=== PATIENT | male | born 1970 | race Caucasian/White ===

== ENCOUNTER 2025-09-19 16:17 | Emergency (ER) | payer OTHER, SELFPAY ==
[2025-09-19] VITALS (12 sets, daily range): BP systolic 127–142; BP diastolic 69–82; PULSE 58–74; O2SAT 95–99; BMI 29.9
--- NOTE | 2025-09-19 16:31 | ECG_ITS ---
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 Measurements Intervals [place] Rate: 67 P: 65 [place]: 176 QRS: 19 QRSD: 98 T: 33 QT: 430 QTc: 446 Interpretive Statements 1100 Sinus rhythm 4068 Nonspecific Twave abnormality 9130 borderline ECG No previous ECG available for comparison Electronically Signed On 09-19-2025 19:21:00 EDT by PRAKASH ROTHMAN M.D.
--- NOTE | 2025-09-19 16:31 | XR_ITS ---
The [address] [address] Patient Name: YANET HERNANDEZ MRN: [id number] date: 1970 Sex: M Assigned Patient Location: ED.MAIN Current Patient Location: ED.MAIN Accession/Order Number: [id number] Exam Date: 09/19/2025 17:00 Report Date: 09/19/2025 17:22 At the request of: ELIZABETH WARNER Procedure: XR chest 1V PA CHEST: CLINICAL HISTORY: Weakness COMPARISON: None Mildly prominent cardiomediastinal silhouette. Lungs are clear. No effusion or pneumothorax. XR/XR chest 1V IMPRESSION: Negative acute pleural-parenchymal disease. Impression dictated by: Italo Martini M.D. 09/19/2025 5:22 PM Dictation Location: [place] [address] Electronically authenticated by: [id number] Y Date: 09/19/2025 17:22
--- NOTE | 2025-09-19 16:32 | CT_ITS ---
The [address] [address] Patient Name: YANET HERNANDEZ MRN: [id number] date: 1970 Sex: M Assigned Patient Location: ED.MAIN Current Patient Location: ED.MAIN Accession/Order Number: [id number] Exam Date: 09/19/2025 17:00 Report Date: 09/19/2025 17:24 At the request of: ELIZABETH WARNER Procedure: CT head/brain wo con CT BRAIN WITHOUT CONTRAST: CLINICAL HISTORY: Dizziness, weakness COMPARISON: None TECHNIQUE: Contiguous axial unenhanced images were obtained through the brain. This CT exam was performed using one or more following dose reduction techniques: Automated exposure control, adjustment of the mA and/or kV according to patient size, or use of iterative reconstruction technique. FINDINGS: There is no evidence of midline shift, intra or extra-axial fluid collection, hemorrhage or CT evidence of acute large vascular distribution stroke. Intracranial vascular calcifications. Visualized intraorbital contents appear unremarkable. Visualized paranasal sinuses are clear. The surrounding soft tissues are normal. CT/CT head/brain wo con IMPRESSION: NO ACUTE INTRACRANIAL ABNORMALITY. Impression dictated by: Italo Martini M.D. 09/19/2025 5:24 PM Dictation Location: [place] [address] Electronically authenticated by: [id number] Y Date: 09/19/2025 17:24
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
[2025-09-19 16:36] LABS: Hematocrit 41.9 % (42.0-54.0); Hemoglobin 13.5 g/dL (14.0-18.0); Immature Granulocytes Abs Auto 0.00 10^3/uL (0.00-0.03); Immature Granulocytes Pct Auto 0.0 % (0.0-0.5); Lymphocytes Absolute Auto 1.5 10^3/uL (1.2-3.8); Mean Corpuscular HGB Conc 32.2 g/dL (29.9-35.2); Mean Corpuscular Hemoglobin 29.4 pg (25.9-34.0); Mean Corpuscular Volume 91.3 fL (80.0-94.0); Platelet Count 227 10^3/uL (150-450); Red Blood Count 4.59 10^6/uL (4.70-6.10); White Blood Count 5.7 10^3/uL (4.0-11.0)
--- OUTSIDE RECORDS SUMMARY | 2025-09-19 16:41 | XMS_ITS | Clinical Summary ---
Author Organization [facility] Address [address] [place] [address] Care Team Providers Care Computer Systems Support Specialist Name Role Phone Unavailable Primary Care Provider Unavailabl e Allergies Active AllergyReactionsCriticalityNoted DateCommentsShellfishAnaphylaxis 11/12/2011 Throat started to swell rushed to hospital Medications MedicationSigDispense QuantityRefillsLast FilledStart DateEnd DateStatus Fluoxetine HCl (PROZAC) 40 mg ORAL capsule Take 1 capsule by mouth once daily.ctive traZODONE 100 mg ORAL tablet Take 1 tablet by mouth at bedtime as needed.ctive ergocalciferol, vitamin D2, (VITAMIN D) 50,000 unit ORAL capsule Take 1 capsule by mouth once each week. 4 capsule ctive Family History Medical HistoryRelationCommentsStrokeFatherDiabetesMotherKidney DiseaseMother Rheumatoid arthritis [Other]MotherMultiple SclerosisOtherPaternal cousinRelation StatusCommentsFatherMotherOther Social History Tobacco UseTypesPacks/DayYears UsedDateSmoking Tobacco: Every DayCigarettes Comments:smokes about 1/2 pa ck daily Alcohol UseStandard Drinks/WeekCommentsYes0 (1 standard drink = 0.6 oz pure alcohol)Sex and Gender InformationValueDate RecordedSex Assigned at BirthNot on fileLegal KstApng64/02/2012 10:10 AM ESTGender IdentityNot on fileSexual OrientationNot on fileOccupationIndustryJob Start DateJob End DateNot on fileNot on fileNot on fileNot on file Last Filed Vital Signs Vital SignReadingTime TakenCommentsBlood Pmkwrfyr897/9212 8:49 AM EST Djhat793111/12/2011 8:49 AM ESTTemperature--Respiratory Rate--Oxygen Saturation-- Inhaled Oxygen Concentration--Wdzkuy37.3 kg (210 lb 0.6 oz)11/12/2011 8:49 AM ESTHeight--Body Mass Index-- Plan of Treatment Health MaintenanceDue DateLast DoneCommentsAnxiety Ufgijjnks71/17/1989Depression Stlhfhecu00/17/1989HIV Ymfwynvfi44/17/1989Hepatitis C Uuhkxmrnh73/17/1989 DTaP,Tdap,Td Vaccine (1 - Tdap)1990Hepatitis B Vaccine (1 of 3 - 19+ 3- dose series)1990Lipid Ytwszsyrw87/17/2006CT Vkviksyyafzr65/17/2016 Cologuard (FIT-DNA)06/13/20161464Novsyvslbcm24/17/2016Colorectal Cancer Screening 2016Diabetes Wghxkygua72, 11/12/2011Fecal Occult Blood 06/13/20161549Vdeklxuqllkho00/17/2016Pneumococcal Vaccine: 50+ (1 of 1 - PCV) 2021hingrix Vaccine (1 of 2)2021ovid-19 Vaccine (1 - 2024- season)2025Influenza Vaccine (#1)2025 Procedures Procedure NamePriorityDate/TimeAssociated DiagnosisCommentsHEMOGLOBIN U0KHxkevft 11/12/2011 10:22 AM EST Generalized weakness Double vision Neck pain from Last 3 Months or Most Recently Relevant to Health Maintenance Results * HGB A1C (11/12/2011 10:22 AM EST)ComponentValueRef RangeTest MethodAnalysis TimePerformed AtPathologist SignatureHemoglobin A1C5.34.0 - 6.0 %[facility] MAIN LABORATORYComment: [place] Diabetes Association guidelines indicate that patients with HgbA1c in the range 5.7-6.4% are at increased risk for development of diabetes, and intervention by lifestyle modification may be beneficial. HgbA1c greater or equal to 6.5% is considered diagnostic of diabetes. Estimated Average Xkgivvn925fc/dLMERCY HEALTH WEST HOSPITAL LABORATORYComment: eAG: (Estimated average glucose) is a calculated value from HgbA1c and is branch sales and service representative of the average blood glucose level in the last 2-3 month period. Specimen (Source)Anatomical Location / LateralityCollection Method / Volume Collection TimeReceived TimeBlood specimen (specimen)BLOOD SPECIMEN / Unknown 11/12/2011 10:22 AM EST11/12/2011 10:28 AM EST Narrative Authorizing ProviderResult TypeResult StatusDevoroya Almeida MDLABORATORYFinal ResultPerforming OrganizationAddressCity/State/ZIP CodePhone Number [facility] [address] [place] [address] from Last 3 Months or Most Recently Relevant to Health Maintenance Insurance
--- OUTSIDE RECORDS SUMMARY | 2025-09-19 16:42 | XMS_ITS | Clinical Summary ---
Author Organization [facility] Address [address] [place] [address] Care Team Providers Care Satellite Technician Name Role Phone Woodrow Matthews DO Primary Care Provider [phone] Woodrow Matthews DO Unavailable [phone] Allergies Active AllergyReactionsCriticalityNoted DateCommentsShellfish Protein-Containing Drug ThqdcnjmOmjydormkijDarj12/17/1994 Medications MedicationSigDispense QuantityRefillsLast FilledStart DateEnd DateStatus clonazePAM (KlonoPIN) 0.5 MG tablet 09/25/2023ctive FLUoxetine (PROzac) 20 MG capsule Take 60 mg by mouth in the morning.4Active QUEtiapine (SEROquel) 25 MG tablet 09/25/2023ctive tamsulosin (Flomax) 0.4 MG 24 hr capsule 05/24/2024ctive albuterol HFA (ProAir HFA) 90 mcg/act inhaler Indications:Shortness of breathInhale 2 puffs every 4 (four) hours if needed for wheezing 18 g ctive omeprazole (PriLOSEC) [address] capsule Indications:Gastroesophageal reflux disease without esophagitisTAKE 1 CAPSULE BY MOUTH DAILY *DO NOT CRUSH OR CHEW* 90 capsule 5Active Active Problems ProblemNoted DateDiagnosed DateAKI (acute kidney injury)4Anxiety 4Asthmatic dtylrjeizs40/02/2024enign prostatic hyperplasia with urinary vypmjvakcvs38/02/2024orneal abyuqsgw21/02/0632Gvgbrmwulso12/02/2024 Erectile loqndihnhfo00/02/2024Essential ptqfpepgukis48/02/2024Foreign body of left eye05/29/2024Fracture of pedicle of lumbar vertebra with eltnigbn18/02/2024 Gastroesophageal reflux klpkymz3205/29/20247585Ltzbjzmacsav74/02/2024Hypomagnesemia 05/29/20242553Vpuwhdndscd05/02/2024Intestinal riubsioesmzji89/02/2024Lumbago with sciatica, right side05/29/2024Obsessive-compulsive qbddggzi30/02/2024Other chronic pain05/29/2024iverticular disease of colon05/29/2024ancolonic bpdejgdgfdudat84/02/2024ilonidal cyst with dgijqwp3305/29/2024ight flank pain 05/29/2024Spondylolisthesis of lumbar inszgj0905/29/2024Stage 3 chronic kidney ezqleie6805/29/20243295Ztcyzrpmjci16/02/2024Urinary ssuvfuwmo73/02/2024Vitamin D gebfakdpar86/02/2024 Encounters DateTypeDepartmentCare FmluBysajbnpplu84/01/2025Refill [facility] [address] [place] [phone] Austin Fox, Gastroesophageal reflux disease without ejvsphmmlya74/30/2025 9:00 AM EDTOffice Visit [facility] [address] [place] [phone] Janusz Salgado DO Left hand pain (Primary Dx)06/26/2025amboo flowsheet [facility] [address] [place] [phone] Janusz Salgado DO 06/26/2025Travelfrom Last 3 Months Family History Medical HistoryRelationNameCommentsHeart diseaseFatherDadHypertensionFatherDad StrokeFatherDadArthritisMotherMomDiabetesMotherMomKidney diseaseMotherMom RelationNameStatusCommentsFatherDadMotherMom Social History Tobacco UseTypesPacks/DayYears UsedDateSmoking Tobacco: ThvrheEowpdzhmrz523 1990 - 2005Passive Smoke Exposure: PastSmokeless Tobacco: Former SnuffQuit: 04/11/2023 Tobacco Cessation:Counseling Given: Not Answered Alcohol UseStandard Drinks/WeekCommentsNot Currently4 (1 standard drink = 0.6 oz pure alcohol)B1300 Health LiteracyAnswerDate RecordedHow often do you need to have someone help you when you read instructions, pamphlets, or other written material from your doctor or pharmacy?Never05/28/2024Social Connection and Isolation PanelAnswerDate RecordedIn a typical week, how many times do you talk on the phone with family, friends, or neighbors?More than three times a week 05/28/2024How often do you get together with friends or relatives?Once a week 05/28/2024How often do you attend christian or voodoo services?Never05/28/2024o you belong to any clubs or organizations such as christian groups, unions, fraternal or athletic groups, or school groups?No05/28/2024How often do you attend meetings of the clubs or organizations you belong to?Never05/28/2024re you , , , , never , or living with a partner?Rkebcex3505/28/2024UDIT-CAnswerDate RecordedQ1: How often do you have a drink containing alcohol?2-4 times a month05/28/2024Q2: How many drinks containing alcohol do you have on a typical day when you are drinking?1 or 2 05/28/2024Q3: How often do you have six or more drinks on one occasion?Never 05/28/2024Overall Financial Resource Strain (CARDIA)AnswerDate RecordedHow hard is it for you to pay for the very basics like food, housing, medical care, and heating?Somewhat hard05/28/2024HQ-2AnswerDate RecordedPatient Health Questionnaire-2 Iwcwv190[facility] [place] of Occupational Health - Occupational Stress QuestionnaireAnswerDate RecordedDo you feel stress - tense, restless, nervous, or anxious, or unable to sleep at night because yourmind is troubled all the time - these days?To some ujyiof7905/28/2024Exercise Vital Sign AnswerDate RecordedOn average, how many days per week do you engage in moderate to strenuous exercise (like a brisk walk)?2 days05/28/2024On average, how many minutes do you engage in exercise at this level?10 min05/28/2024Hunger Vital SignAnswerDate RecordedWithin the past 12 months, you worried that your food would run out before you got the money to buymore.Never true05/28/2024Within the past 12 months, the food you bought just didn't last and you didn't have money to get more.Never true05/28/2024RAPARE - TransportationAnswerDate RecordedIn the past 12 months, has lack of transportation kept you from medical appointments or from getting medications?No05/28/2024In the past 12 months, has lack of transportation kept you from meetings, work, or from getting things needed for daily living?No05/28/2024Housing Stability Vital SignAnswerDate RecordedIn the last 12 months, was there a time when you were not able to pay the mortgage or rent on time?No05/28/2024In the past 12 months, how many times have you moved where you were living?t any time in the past 12 months, were you homeless or living in a retirement (including now)?No05/28/2024Sex and Gender InformationValueDate RecordedSex Assigned at BirthNot on fileLegal XchMfao9002/09/2023 6:53 PM EDTGender IdentityNot on fileSexual OrientationNot on file Last Filed Vital Signs Vital SignReadingTime TakenCommentsBlood Bpmxijxd702/8006 10:13 AM EDT Tirhd2372/10/2025 10:13 AM BWWXvrecdnixkq48.2 ??C (97.2 ??F)05/07/2025 10:13 AM EDTRespiratory Rate--Oxygen Nlykypfngy45%04/19/2025 12:04 PM EDTInhaled Oxygen Concentration--Bmeskb10.1 kg (203 lb)06/26/2025 9:05 AM GTJWvlpye993.2 cm (5' 7 )06/26/2025 9:05 AM EDTBody Mass Index31.7906/26/2025 9:05 AM EDT Plan of Treatment Health MaintenanceDue DateLast DoneCommentsCT Tmfqzoqcdkgq1971FIT-DNA 1971FIT1971FOBT1971 6233Zclnaxxfztjmt1971Influenza Vaccine (#1)0627Pxpjegrrchz92, 12/20/2022, 12/20/2022olorectal Cancer Ctlblyymd19/23/2033 Procedures Procedure NamePriorityDate/TimeAssociated DiagnosisCommentsCOLONOSCOPYRoutine 12/20/2022 12:00 PM EST from Last 3 Months or Most Recently Relevant to Health Maintenance Results * Colonoscopy (12/20/2022 12:00 PM EST)Anatomical RegionLateralityModality EndoscopySpecimen (Source)Anatomical Location / LateralityCollection Method / VolumeCollection TimeReceived Time12/20/2022 12:00 PM EST Narrative 12/20/2022 12:00 PM EST PERFORMED AT [facility] LOCATION:[id number] [facility] Procedure Note CONVERSION, GENERIC - 04/13/2023 PERFORMED AT [facility] LOCATION:[id number] [facility] Authorizing ProviderResult TypeResult StatusPabrianne Matthews DOENDOSCOPY PROCEDURE ORDERABLESFinal Result from Last 3 Months or Most Recently Relevant to Health Maintenance Insurance Care Teams Team MemberRelationshipSpecialtyStart DateEnd Date Woodrow Matthews DO [address] [place] [address] [facility] - [facility] Woodrow Matthews DO [address] [place] [address] PCP - [facility]09/28/2312
--- OUTSIDE RECORDS SUMMARY | 2025-09-19 16:42 | XMS_ITS | Clinical Summary ---
Author Organization [facility] Address [address] [place] [address] Phone Care Team Providers Care Director Physical Name Role Phone Unavailable Primary Care Provider Unavailabl e Social History Tobacco UseTypesPacks/DayYears UsedDateSmoking Tobacco: Never AssessedSex and Gender InformationValueDate RecordedSex Assigned at BirthNot on fileLegal Sex Male10/23/2022 7:46 AM ESTGender IdentityNot on fileSexual OrientationNot on file Plan of Treatment Not on file
[2025-09-19 16:49] LABS: Alanine Aminotransferase 20 U/L (16-63); Albumin Globulin Ratio 0.9; Albumin Level 3.5 g/dL (3.4-5.0); Alkaline Phosphatase 120 U/L (46-116); Anion Gap 15.0; Aspartate Amino Transferase 24 U/L (15-37); Blood Urea Nitrogen 8.0 mg/dL (7.0-18.0); Calcium 9.0 mg/dL (8.5-10.1); Carbon Dioxide 23.7 mmol/L (21.0-32.0); Chloride 105 mmol/L (98-107); Estimated GFR (African America >60 (>=60 mL/min/1.73m^2); Estimated GFR (Non-African Ame >60 (>=60 mL/min/1.73m^2); Globulin 3.9 g/dL; Glucose 58 mg/dL (74-106); Lipase 36.0 U/L (16.0-77.0); Magnesium 1.7 mg/dL (1.8-2.4); Sodium 141 mmol/L (136-145); Total Protein 7.4 g/dL (6.4-8.2)
[2025-09-19 16:51] LABS: Potassium 2.7 mmol/L (3.5-5.1)
[2025-09-19] MEDS: POTASSIUM BICARBONATE/CIT 25 MEQ TABLET EFF 50 MEQ PO ×2 (16:58→19:25)
[2025-09-19] MEDS: GLUCAGON 1 MG/ML VIAL IM (20:02)
== END 2025-09-19 20:11 | disposition home or self-care (01) ==
PROVIDERS: Nurse Practitioner Family; Emergency Provider Emergency Medicine; PCP Family Medicine
DX: E16.1 Other hypoglycemia (principal); E87.6 Hypokalemia; R61 Generalized hyperhidrosis
CPT/HCPCS: 36415; 70450; 71045; 80053; 82948; 83690; 83735; 84484; 85025; 93005; 96372; 99285; J1610